=== PATIENT | female | born 1940 | race Caucasian/White ===

== ENCOUNTER → 2017-09-03 | Outpatient (CLI) | payer OTHER ==
[~2017-09-03] MED LIST: ADULT LOW DOSE81 MG PO; ALDACTONE50 MG PO; ASPIR 8181 M1 PO; ASPIRIN325 PO; CEFUROXIME500 MG PO; CIPROFLOXACIN500 M1 PO; CLARITIN10 MG PO; CO Q-10100 MG PO; COZAAR 25 MG TA25 M1 PO; FENOFIBRATE160 MG PO; FISH OIL 1,0001 EAC5 PO; FLONASE 0.05%50 MCG NASAL; FLONASE NASAL; FOLIC ACID 40400 MC1 PO; GLUCOPHAGE500 MG PO; HYDROCODON-ACE1 EAC7 PO; IMDUR 30 MG TAB30 M1 PO; IMDUR 60 MG TAB60 M1 PO; LIPITOR10 MG PO; LISINOPRIL2.5 MG PO; LOPERAMIDE 2 MG2 M1 PO; LOPRESSOR 12.12.5 MG PO; NITROSTAT0.4 MG SL; NORCO 5-325 TA1 EACH PO; NORVASC5 MG PO; OMEPRAZOLE 20 M20 MG PO; PEPCID20 MG PO; PLAVIX 75 MG TA75 MG PO; PRAVASTATIN SOD10 MG PO; TOPROL XL25 MG PO; TRADJENTA5 MG; VENTOLIN HFA 1818 GM INH; VITAMIN B-121000 MCG PO; VITAMIN D31000 UNI2 PO; VITAMINC500 PO; ZOCOR40 MG PO
[2017-09-03 13:49] LABS: ABSOLUTE EOSINOPHILS 0.1 thou/uL (0.0-0.7); ABSOLUTE LYMPHOCYTES 1.2 thou/uL (0.8-5.3); ABSOLUTE MONOCYTES 0.6 thou/uL (0.0-1.2); ABSOLUTE NEUTROPHILS 3.5 thou/uL (1.6-8.1); BASOPHILS 0.8 %; EOSINOPHILS 1.6 %; HEMATOCRIT 34.3 % (37.0-47.0); HEMOGLOBIN 11.3 gm/dL (12.0-15.0); LYMPHOCYTES 22.8 %; MCH 30.7 pg (26.0-34.0); MCHC 32.9 g/dL (28.0-37.0); MCV 93.1 fL (80.0-100.0); MONOCYTES 10.3 %; MPV 7.2 fl. (7.2-11.1); NUCLEATED RBCS 0 /100WBC; PLATELET COUNT* 349 thou/uL (150-400); POLYS 64.5 %; RBC 3.69 mil/uL (4.20-5.00); RDW-CV 17.6 % (10.5-14.5); WBC 5.4 thou/uL (4.0-11.0)
[2017-09-03 14:11] LABS: ALBUMIN 3.4 g/dL (3.4-5.0); CALCIUM 9.2 mg/dL (8.5-10.1); CREATININE 0.8 mg/dL (0.6-1.3); POTASSIUM 3.6 mmol/L (3.5-5.1); TOTAL BILIRUBIN 0.5 mg/dL (<0.1-1.0); TOTAL PROTEIN 6.6 g/dL (6.4-8.2)
== END ==
LOC: M.LAB 13:30
PROVIDERS: Specialist
DX: Z01.818 Encounter for other preprocedural examination (principal); N81.6 Rectocele; N81.11 Cystocele, midline; N99.3 Prolapse of vaginal vault after hysterectomy; I25.10 Atherosclerotic heart disease of native coronary artery without angina pectoris

== ENCOUNTER 2017-09-10 06:00 | Observation (INO) | payer OTHER ==
[~2017-09-10] VITALS: Ht 147.3 cm; Wt 62.1 kg
[~2017-09-10 06:00] MED LIST changes: -HYDROCODON-ACE1 EAC7 PO
[2017-09-10 06:30] VITALS: BP 135/75
[2017-09-10 12:00] VITALS: BP 146/71
--- NOTE | 2017-09-10 12:30 | NUR ---
PT ARRIVED TO THE UNIT AT 1145. PT A&O CALM AND COOPERATIVE. PT VSS ON ROOM AIR. PT DENIES AND SIGNIFICANT PAIN THAT IS NOT CONTROLLED BY THE ACQUISITION ANALYST. PT ORIENTED TO UNIT AND SERVICES, FOOD AND DRINK OFFERED. NURSIGN WILL CONTINUE TO MONITOR.
--- NOTE | 2017-09-10 14:27 | EKG ---
[place] [address] ELECTROCARDIOGRAM REPORT Name: JASSI PEARCE Room: [address]#: [id number] Admission: 09/10/17 Attend Phys: Franky Titus MD Discharge: Date of : 36 Report #: [id number] THIS REPORT FOR: //name// [facility] Test Date: 2017-09-10 Test Time: 07:15:15 Pat Name: JASSI PEARCE Department: Room: Gender: F Logging Engineer: : 1940 Requested By: Franky Titus Order Number: [id number] María MD: Kem Ramsay Measurements Intervals [place] Rate: 69 P: 5 NC: 162 QRS: -20 QRSD: 86 T: 27 QT: 428 QTc: 459 Interpretive Statements Sinus rhythm Inferior infarct, old Compared to ECG 09/17/2016 04:24:13 No significant changes Electronically Signed On 09-10-2017 14:27:09 CDT by Kem Ramsay [email or web address] <ELECTRONICALLY SIGNED> By: Kem Ramsay MD, [facility] 09/10/17 1427 4 Kem Ramsay MD, FACC /EPI
[2017-09-10 16:00] VITALS: BP 140/68
--- NOTE | 2017-09-10 16:50 | OP ---
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 POSTOPERATIVE DIAGNOSIS: Large rectocele. PROCEDURE: Posterior colporrhaphy with perineorrhaphy. SURGEON Franky Titus MD ESTIMATED BLOOD LOSS: 50 mL. ANESTHESIA: General. COMPLICATIONS: None. PROCEDURE: Operative permit was in order. The patient was taken to the operative suite where she was placed under general anesthesia, prepped and draped in the usual manner. Mckeon catheter was placed. The patient's urethra was extremely small and a 12-Indonesian Mckeon catheter was used. Balloon was inflated. She had been given preoperative antibiotics and was prepped and draped in the usual manner. Inspection of the introitus showed large vaginal bulge from the introitus. As noted preoperatively, the vaginal introitus was narrow; therefore, a midline incision was made at the posterior fourchette, allowing full visualization. The tissue bulging from the vagina was found to be a very large rectocele. The apex of the vagina could be visualized using retractors. The corners of the vagina were grasped with Allis clamps and the apex of vagina was actually very well supported. The anterior vaginal wall was quite short and also appeared to have good support. As the patient did not have apical prolapse and a shortened anterior vaginal wall was noted, a colpocleisis was deemed inappropriate and a posterior colporrhaphy planned. Remnants of the hymenal ring on either side were grasped with Allis clamps and a transverse incision made at the introitus, allowing access to the posterior vaginal wall. The vaginal wall was undermined using Metzenbaum scissors. This was carried out to the apex of the vagina. The adventitial tissue over the rectum was dissected away from the vagina as far laterally as feasible. Remnants of the rectovaginal septum were identified on either side. A V shaped wedge of vaginal tissue was excised that allowed full visualization of the operative site. The large rectocele was reduced by bringing the remnants of the fascia back together in the midline, suturing with interrupted 0 Vicryl stick ties. This was carried out from the apex down the vagina to the introitus and did appear to give good posterior support. The vagina was then closed using a 2-0 Vicryl running locked stitch down to near the introitus. [place]ost[place] [address] OPERATIVE REPORT Name: JASSI PEARCE Room: [address] M.R.#: [id number] Admission: 09/10/17 Attend Phys: Franky Titus MD Discharge: Date of : 36 Report #: [id number] controlled with electrocautery as necessary. Once the vagina was closed to about 2 cm from the introitus, the perineum was rebuilt using 0 Vicryl interrupted stick ties. Rectal exam was performed to confirm that there was no injury to the rectum and that no stitches had gone through the rectal mucosa. Gloves were changed. The remaining portion of the posterior wall was then closed with 2-0 Vicryl. This was brought through to the perineum and the perineum was then closed using this stitch as a deep running layer and then brought back up to the introitus as a subcuticular stitch. No significant bleeding was noted. Urine was noted to be clear. The vagina was packed with 2 inch Nu Gauze and estrogen cream. Sponge and instrument counts were reported to me as correct and she was awakened from her anesthetic and taken to recovery room in satisfactory condition. <ELECTRONICALLY SIGNED> By: Franky Titus MD 09/10/17 1650 1030 1055Franky Titus MD /reed
[2017-09-10 21:20] VITALS: BP 152/73
[2017-09-11 00:09] VITALS: BP 139/74
[2017-09-11 03:59] VITALS: BP 145/75
[2017-09-11 05:03] LABS: ABSOLUTE EOSINOPHILS 0.1 thou/uL (0.0-0.7); ABSOLUTE LYMPHOCYTES 1.1 thou/uL (0.8-5.3); ABSOLUTE MONOCYTES 0.7 thou/uL (0.0-1.2); ABSOLUTE NEUTROPHILS 5.9 thou/uL (1.6-8.1); BASOPHILS 0.6 %; EOSINOPHILS 1.1 %; HEMATOCRIT 30.4 % (37.0-47.0); HEMOGLOBIN 10.2 gm/dL (12.0-15.0); LYMPHOCYTES 13.7 %; MCH 30.6 pg (26.0-34.0); MCHC 33.5 g/dL (28.0-37.0); MCV 91.4 fL (80.0-100.0); MONOCYTES 8.7 %; MPV 8.2 fl. (7.2-11.1); NUCLEATED RBCS 0 /100WBC; PLATELET COUNT* 289 thou/uL (150-400); POLYS 75.9 %; RBC 3.32 mil/uL (4.20-5.00); RDW-CV 17.7 % (10.5-14.5); WBC 7.8 thou/uL (4.0-11.0)
[2017-09-11 05:05] LABS: ALBUMIN 2.9 g/dL (3.4-5.0); CALCIUM 8.6 mg/dL (8.5-10.1); CREATININE 0.7 mg/dL (0.6-1.3); MAGNESIUM 1.4 mg/dL (1.8-2.4); POTASSIUM 3.5 mmol/L (3.5-5.1); TOTAL BILIRUBIN 0.3 mg/dL (<0.1-1.0); TOTAL PROTEIN 5.9 g/dL (6.4-8.2)
--- NOTE | 2017-09-11 05:42 | NUR ---
PATIENT HAS SLEPT WELL THROUGHOUT THE NIGHT WITHOUT ANY ISSUES NOTED. PAIN WELL CONTROLLED. VSS ON RA. IV IN LEFT FOREARM-SL. LINSEY CATH RIGHT CHEST-D5 1/2 NS @ 100ML/HR AND AD OPERATIONS COORDINATOR PUMP WITH FENTANYL. WEBSTER TO DEPENDENT DRAINAGE WITH YELLOW URINE OUTPUT AND IS TO BE REMOVED THIS AM. VAGINAL PACKING TO BE REMOVED THIS AM WELL. PATIENT INSTRUCTED TO USE CALL LIGHT WHEN NEEDING ASSISTANCE. HOURLY ROUNDS MADE. WILL CONTINUE WITH PLAN OF CARE AND NURSING TO MONITOR.
[2017-09-11] MEDS ORDERED: HYDROCODON-ACE1 EAC7 PO (07:47)
[2017-09-11 08:07] VITALS: BP 150/77
[2017-09-11 11:15] VITALS: BP 150/77
[2017-09-11 11:19] VITALS: BP 150/77
--- NOTE | 2017-09-11 13:09 | NUR ---
PT DC'D HOME WITH ALL BELONGINGS. PT ACKNOWLEDGED DC INSTRUCTIONS AND SENT WITH RX. PT DENIES PAIN ON DC. TOLERATES DIEST WITHOUT INCREASE PAIN OR DISCOMFORT. PT ABLE TO VOID FREELY. IV REMOVED INTACT BEFORE DISMISSAL.
== END 2017-09-11 13:00 | disposition home or self-care (01) ==
LOC: M.SUR 06:00 → M.TBA 09:52 → M.ORTHSURG 09:52 → M.SUR 09:52 → M.ORTHSURG 11:45 → M.TBA 11:45 → M.SUR 12:28 → M.ORTHSURG 09-11 13:00 → M.SUR 09-11 13:00 → M.ORTHSURG 09-11 13:00
PROVIDERS: Internal Medicine; ADMIT Specialist
DX: N81.10 Cystocele, unspecified (principal); N81.6 Rectocele; N99.3 Prolapse of vaginal vault after hysterectomy; I25.10 Atherosclerotic heart disease of native coronary artery without angina pectoris; I25.2 Old myocardial infarction; G62.9 Polyneuropathy, unspecified; I10 Essential (primary) hypertension; Z85.72 Personal history of non-Hodgkin lymphomas; Z92.21 Personal history of antineoplastic chemotherapy; Z90.710 Acquired absence of both cervix and uterus

== ENCOUNTER → 2017-09-12 | Outpatient (CLI) | payer OTHER ==
[~2017-09-12] MED LIST changes: +HYDROCODON-ACE1 EAC7 PO
== END ==
LOC: M.RAD 12:56 → M.CRD 13:00 → M.RAD 13:00
DX: Z12.31 Encounter for screening mammogram for malignant neoplasm of breast (principal); M81.0 Age-related osteoporosis without current pathological fracture; Z78.0 Asymptomatic menopausal state

== ENCOUNTER → 2019-03-18 | Outpatient (CLI) | payer OTHER ==
--- NOTE | 2019-03-18 18:24 | CARDNUC ---
[place] [address] CARDIAC NUCLEAR IMAGING REPORT Name: JASSI PEARCE Room: [facility]#: [id number] Admission: 03/18/19 Attend Phys: Yohannes Gooden, Discharge: Date of : 36 Date of Service: 03/18/19 1823 Report #: [id number] THIS REPORT FOR: //name// APPROVED REPORT Study performed: 03/18/2019 14:42:27 Exam: Nuclear Stress Test Indication: Chest pain, Dyspnea, Left arm pressure. Patient Location: Out-Patient Stress Tech: Lorni Goldstein Stress Nurse: Estefany Cook RN NM Tech:SHAMIKA Iglesias Ht: 4 ft 11 in Wt: 143 lbs BSA: 1.60 m2 BMI: 28.87 Medical History Medical History: Angina, CAD s/p MA, CAD s/p stent, Fatigue, HTN, Hyperlipidemia, SOB, Aortic Valve Stenosis. Medications: Amlodipine, ASA 81 Mg, Atorvastatin, Clopidogrel, Isosorbide, Losartan, Metoprolol. Allergies: Statins Cardiac Risk Factors: Age, FHX of CAD, HTN, Hyperlipidemia, SOB, Aortic Valve Stenosis. Previous Cardiac Procedures: Myocardial infarction, PCI Pretest Chest Pain Characteristics: No chest pain Exercise History: Indeterminate Physical Disabilities: Unsteady/weak gait. Meds Held (24 hrs): Isosorbide, Metoprolol. Stress Test Details Stress Test: Pharmacologic stress testing performed using 0.4 mg of regadenoson per 5 mL given IV over 10 seconds. Reason for pharmacologic stress test: Unsteady/weak gait.. HR Resting HR: 59 bpm Max Heart Rate (APMHR): 139 bpm Max HR Achieved: 94 bpm Target HR (85% APMHR): 118 bpm % of APMHR: 67 Recovery HR: 81 bpm BP Resting BP: 147/58 mmHg Max BP: 153/75 [place] [address] CARDIAC NUCLEAR IMAGING REPORT Name: JASSI PEARCE Room: [facility]#: [id number] Admission: 03/18/19 Attend Phys: Yohannes Gooden, Discharge: Date of : 36 Date of Service: 03/18/19 1823 Report #: [id number] ECG Resting ECG: Sinus Rhythm Stress ECG: Sinus Rhythm ST Change: None Arrhythmia: None Recovery ECG: Sinus Rhythm Recovery ST Change: None Recovery Arrhythmia: None Clinical Reason for Termination: Completed protocol Stress Symptoms: Dyspnea, Headache, Head pressure. Exercise duration: 00 min 00 sec Exercise capacity: 1.00 METs The patient tolerated Lexiscan infusion without significant cardiac symptoms. Nurse Comments An 79 year old female presented in wheelchair for sitting Lexiscan Nuclear Stress Test r/t recent CP radiating to left arm and dyspnea s/p MA and PCI. Test well tolerated. Recovery unremarkable with PO caffeine, effective. Patient was escorted via wheelchair by staff to Nuclear Medicine for images. Patient was stable with no complaints at that time. Stress ECG Conclusion The baseline EKG show sinus rhythm without significant ST or T wave abnormality. EKGs obtained during and post Lexiscan infusion show sinus rhythm with no significant ST or T wave changes when compared to baseline. NM EXAM: Myocardial Perfusion REST/STRESS Imaging Protocol: Rest Tc-99m/Stress Tc-99m 1 day Resting Data Rest SPECT myocardial perfusion imaging was performed in supine position 30 minutes following the intravenous injection of 11.4 mCi of Tc-99m Sestamibi. Time of rest injection: 1300 Date: 03/18/2019 The images were gated to evaluate regional wall motion and calculate left ventricular ejection fraction. Administration Route: IV Administration Site: Right [place] [address] CARDIAC NUCLEAR IMAGING REPORT Name: JASSI PEARCE Room: [facility]#: [id number] Admission: 03/18/19 Attend Phys: Yohannes Gooden, Discharge: Date of : 36 Date of Service: 03/18/19 1823 Report #: [id number] Pharmacologic stress test was performed by injecting Regadenoson 0.4 mg IV push followed by the intravenous injection of 31.4 mCi of Tc-99m Sestamibi. Time of stress injection: 1500 Date: 03/18/2019 Administration Route: IV Administration Site: Right AC Gated Stress SPECT was performed 40 minutes after stress injection. The images were gated to evaluate regional wall motion and calculate left ventricular ejection fraction. Prone imaging was performed. Study Quality Study: Good Artifact: Mild Diaphragmatic artifact Study Data At rest, the left ventricular ejection fraction was 66%.. Post stress, the left ventricular ejection was 60%.. TID = 1.09. Perfusion There is a small region of moderate to severe intensity defect in the basal portion the inferior wall. There is associated wall motion are normally suggesting the possibility of prior infarct. Additionally there is a focal reversible apical defect suggesting apical ischemia. Wall Motion The basal portion inferior wall is hypokinetic. Global LV systolic function is preserved. Nuclear Conclusion ECG Findings: negative for ischemia Clinical Findings: negative for ischemia Nuclear Findings: positive for ischemia Exercise Capacity: not assessed Left Ventricular Function: preserved Risk Study: moderate Myocardial perfusion images suggest possible prior infarct of the basal portion the inferior wall as well as focal apical ischemia. Global LV systolic function is preserved. This is a moderate risk study. <Conclusion> The baseline EKG show sinus rhythm without significant ST [place] [address] CARDIAC NUCLEAR IMAGING REPORT Name: JASSI PEARCE [id number] Admission: 03/18/19 Attend Phys: Yohannes Gooden, Discharge: Date of : 36 Date of Service: 03/18/19 1823 Report #: [id number] abnormality. EKGs obtained during and post Lexiscan infusion show sinus rhythm with no significant ST or T wave changes when compared to baseline. <ELECTRONICALLY SIGNED> By: Yohannes Gooden MD, FACC 03/18/191822 22 22 Yohannes Gooden MD, FACC /INF
== END ==
LOC: M.NUC 02-18 08:05 → M.CRD 03-07 13:00 → M.NUC 03-07 13:00
DX: I25.10 Atherosclerotic heart disease of native coronary artery without angina pectoris (principal); I25.2 Old myocardial infarction; I10 Essential (primary) hypertension; E78.5 Hyperlipidemia, unspecified; Z95.818 Presence of other cardiac implants and grafts; Z79.899 Other long term (current) drug therapy

== ENCOUNTER 2019-03-27 12:59 | Observation (INO) | payer OTHER ==
[2019-03-27] VITALS (18 sets, daily range): BP systolic 103–161; BP diastolic 50–87
[~2019-03-27] VITALS: Ht 149.9 cm; Wt 63.0 kg
[2019-03-27 15:01] LABS: HEMOGLOBIN 12.1 gm/dL (12.0-15.0); MCH 30.6 pg (26.0-34.0); MCHC 34.4 g/dL (28.0-37.0); MCV 89.1 fL (80.0-100.0); MPV 8.7 fl. (7.2-11.1); RBC 3.93 mil/uL (4.20-5.00); WBC 4.6 thou/uL (4.0-11.0)
[2019-03-27] MEDS ORDERED: ASA81BEC (15:03)
[2019-03-27 15:10] LABS: INR 1.2
[2019-03-27 15:14] LABS: ANION GAP 8 mmol/L (7-16); BUN 18 mg/dL (7-18); CALCIUM 9.4 mg/dL (8.5-10.1); CHLORIDE 108 mmol/L (98-107); CO2 25 mmol/L (21-32); CREATININE 0.8 mg/dL (0.6-1.3); GLUCOSE 97 mg/dL (70-99); POTASSIUM 4.4 mmol/L (3.5-5.1); SODIUM 141 mmol/L (136-145)
[2019-03-27 15:19] LABS: ALBUMIN 3.3 g/dL (3.4-5.0); ALKALINE PHOSPHATASE 68 U/L (46-116); CHOLESTEROL 87 mg/dL (<200); HDL CHOLESTEROL 21 mg/dL (>40); LDL CHOLESTEROL 56 mg/dL (<100); SGOT 43 U/L (15-37); SGPT 34 U/L (30-65); TC:HDL 4.1 Ratio (Not establshd); TOTAL BILIRUBIN 0.7 mg/dL (<0.1-1.0); TOTAL PROTEIN 6.4 g/dL (6.4-8.2); TRIGLYCERIDE 54 mg/dL (<150); VLDL 11 mg/dL (<40)
[2019-03-27 15:22] LABS: SERUM ASSESSMENT Clear
--- NOTE | 2019-03-27 15:44 | EKG ---
[place] [address] ELECTROCARDIOGRAM REPORT Name: JASSI PEARCE Room: [facility]#: [id number] Admission: 03/27/19 Attend Phys: Yohannes Gooden MD Discharge: Date of : 38 Report #: [id number] THIS REPORT FOR: //name// [facility] Test Date: 2019-03-27 Test Time: 14:20:36 Pat Name: JASSI PEARCE Department: Room: Gender: F Clinical Biochemical Geneticist: : 1940 Requested By: Yohannes Gooden Order Number: [id number] Reading MD: Yohannes Gooden Measurements Intervals [place] Rate: 63 P: 43 NV: 166 QRS: -27 QRSD: 95 T: 8 QT: 417 QTc: 427 Interpretive Statements Sinus rhythm Inferior infarct, old Compared to ECG 09/10/2017 07:15:15 ST (T wave) deviation now present Myocardial infarct finding still present Electronically Signed On 03-27-2019 15:44:04 ASSOCIATE SOFTWARE DEVELOPMENT ENGINEER by Yohannes Gooden [email or web address] <ELECTRONICALLY SIGNED> By: Yohannes Gooden MD, [facility] 03/27/19 1544 1420 1420 Yohannes Gooden MD, FACC /EPI
[2019-03-28] VITALS (7 sets, daily range): BP systolic 116–142; BP diastolic 51–64
[2019-03-28 03:48] LABS: CALCIUM 8.8 mg/dL (8.5-10.1); CREATININE 0.8 mg/dL (0.6-1.3); POTASSIUM 4.8 mmol/L (3.5-5.1)
--- NOTE | 2019-03-28 06:32 | NUR ---
PT TRANSFERRED TO 222 VIA BED. RECEIVED REPORT FROM EQUIPMENT DRIVER. PT A&OX4. BIOMETRICS TECHNICIAN IN PLACE. VSS. ADMISSION HISTORY & PHYSICAL ASSESSMENT COMPLETED AND CHARTED. ORIENTED TO ROOM & CALL LIGHT. PT ON RA. PT TRACING SR ON TELE. POST CATH SITE TO RIGHT GROIN CLEAN, DRY & INTACT. NO BLEEDING OR HEMATOMA NOTED. DENIES ANY PAIN OR DISCOMFORT. PT ABLE TO SLEEP WELL ON BED. CALL LIGHT WITHIN REACH.
--- NOTE | 2019-03-28 09:19 | NUR ---
ASSUMED CARE OF PT THIS AM AROUND 0715- CLIENT ADVOCATE IN PLACE ORDERED, TRACING SB- UPON ASSESSMENT PT NOTED TO BE RESTING IN BED- PT A&O X4- CONTINENT OF B/B- SBA WITH TRANSFERS- LCTA, RESP EVEN AND UN-LABORED- VSS, O2 SAT 99% ON RA- ABD SOFT/ROUND/NON-TENDER, BS X4 QUADS- LAST BM REPORTED THIS AM-GOOD PO INTAKE NOTED THIS AM WITH BREAKFAST- IV NOTED TO LEFT WRIST INTACT AND SL- RIGHT GROIN SLIGHT C/D/I WITH NO HEMATOMA NOTED, SENSATION INTACK WITH CAP LESS THAN 3- PT DENIES ANY C/O PAIN/DISCOMFORT AT THIS TIME- CALL LIGHT AND PERSONAL BELONGINGS WITH IN REACH- HOURLY ROUNDS IN PLACE R/T SAFETY/NEEDS- ALL NEEDS MET AT THIS TIME-WCTM
[2019-03-28] MEDS ORDERED: EFFIENT10 MG PO (09:49)
--- NOTE | 2019-03-28 13:58 | EKG ---
[place] [address] ELECTROCARDIOGRAM REPORT Name: JASSI PEARCE Room: [address] M.R.#: [id number] Admission: 03/27/19 Attend Phys: Yohannes Gooden MD Discharge: 03/28/19 Date of : 38 Report #: [id number] THIS REPORT FOR: //name// [facility] Test Date: 2019-03-28 Test Time: 03:00:50 Pat Name: JASSI PEARCE Department: Room: [facility] Gender: F Retail Support Specialist: : 1940 Requested By: Yohannes Gooden Order Number: [id number] Reading MD: Kem Ramsay Measurements Intervals [place] Rate: 61 P: 53 MA: 171 QRS: -28 QRSD: 101 T: 2 QT: 424 QTc: 427 Interpretive Statements Sinus rhythm Rare PVC Inferior infarct, old Compared to ECG 03/27/2019 14:20:36 PVC is noted Myocardial infarct finding still present Electronically Signed On 03-28-2019 13:57:50 BUSINESS MANAGEMENT INTERN by Kem Ramsay [email or web address] <ELECTRONICALLY SIGNED> By: Kem Ramsay MD, [facility] 03/28/19 1357 9 9 Kem Ramsay MD, FACC /EPI
--- NOTE | 2019-03-28 14:54 | CARD ---
[address] [address] CARDIAC CATH REPORT Name: JASSI PEARCE Room: [address] Wilner Greene#: [id number] Admission: 03/27/19 Attend Phys: Yohannes Gooden MD Discharge: 03/28/19 Date of : 38 Report #: [id number] THIS REPORT FOR: //name// ADDENDUM APPROVED REPORT Study performed: 03/27/2019 15:23:33 Patient Details Patient Status: OP Room #: The patient is a 79 year-old female Event Personnel Yohannes Gooden Religion Teacher, Candi Lamar Glue Bone Crusher, Graciela Garnett RTR Scrub, Maryjane Gonzalez RTR Monitor, Kem Ramsay Supreme Court Justice, Shaista Florez Glue Bone Crusher Procedures Performed Art Access - R femoral artery Left Heart Cath w/or w/o Coronaries JANE Place w/wo Plasty Single LAD PTCA Addl Branch DIAG 2 Hemostasis with Manual pressure Indication Positive stress test Risk Factors Hypercholesterolemia Admission/Lab Medications/Medications given during procedure Angiomax bolus and infusion Procedure Narrative The patient was brought electively to the Cardiac Catheterization Laboratory and was prepped and draped in a sterile manner. The right femoral was infiltrated with subcutaneous anesthesia. A Golden Eagle 6 FR sheath was inserted into the right femoral artery. Coronary angiography was performed using coronary diagnostic catheters. The right coronary system was accessed and visualized with a Diagnostic JR 4 6 Fr catheter. The left coronary system was accessed and visualized with a Diagnostic JL 4 6 Fr catheter. The left ventricle was accessed and visualized with a Diagnostic Pig 6 Fr catheter. Left ventricular/Aortic Valve gradient assessed via catheter pullback. Left ventriculogram was performed in CRENSHAW projection. Pre-demployment femoral angiogram was performed . Hemostasis was obtained with manual pressure following sheath removal without any complications. The patient tolerated the procedure well and there [place] [address] CARDIAC CATH REPORT Name: PEARCEJASSI Room: [address] M.Ashlyn#: [id number] Admission: 03/27/19 Attend Phys: Yohannes Gooden MD Discharge: 03/28/19 Date of : 38 Report #: [id number] associated with the procedure. There was no hematoma. Intraoperative Conscious Sedation Sedation start time: 15:56 Case end Time: 16:51 Fentanyl 25 mcg Versed 1 mg Fluoro Time: 15.8 minutes Dose: DAP 45677 cGycm2 1569 mGy Contrast Type and Amount: Visipaque 200 ml Diagnostic Cath Left Main 0% narrowing LAD 40% proximal LAD stenosis with 90% calcified focal mid LAD stenosis Circumflex Tandem 75 and 80% proximal and mid circumflex stenoses, this being a nondominant vessel Right Coronary Large dominant vessel with 50% tubular mid vessel narrowing and 90% distal stenosis Left Ventriculography The left ventricle is normal in size with normal contractility. The left ventricular ejection fraction is estimated to be 60%. Left ventricular wall motion abnormalities are not present. There is mild mitral insufficiency. Hemodynamics The aortic pressure is 140/51 mmHg with a mean of 86 mmHg. The left ventricular pressure is 140/5 mmHg with a mean of mmHg. The left ventricular end diastolic pressure is 21 mmHg. PCI Technique Lesion Anticoagulation was achieved with Angiomax. Patient was preloaded with Angiomax IV 10 ml. Percutaneous coronary intervention was performed on the mid left anterior descending artery segment. The lesion stenosis prior to intervention was 90% with TANMAY 3 flow. A 6F XB LAD 3.5 Guide Catheter was used to engage the left ostium. A IG: BMW 190cm Interventional Guidewire was used to cross the lesion. BALLOON DILATION A Balloon catheter NC Trek RX 2.25x12 was inserted and inflated up to 18.00atm for 21seconds. Additional Inflation: 22.00atm for 13seconds. [place] [address] CARDIAC CATH REPORT Name: JASSI PEARCE Room: [address] Jc#: [id number] Admission: 03/27/19 Attend Phys: Yohannes Gooden MD Discharge: 03/28/19 Date of : 36 Report #: [id number] A drug-eluting stent Biotronik Orsiro 2.5 x 13 was inserted and inflated up to 10.00atm for 14seconds. Additional Inflation: 11.00atm for 10seconds. Final angiography reveals 0 % stenosis with TANMAY 3 flow. PCI Technique Lesion 2 Percutaneous Coronary Intervention was performed on the second diagnonal branch segment. Patient was preloaded with Angiomax IV 10 ml. The lesion stenosis prior to intervention was 75% with TANMAY 2/3 flow. A 6F XB LAD 3.5 Guide Catheter was used to engage the ostium. A IG: BMW 190cm Interventional Guidewire was used to cross the lesion. Balloon Dilation A Balloon catheter Mini Trek RX 2.0 X 8 was inserted and inflated up to 10.00atm for 12seconds. Additional Inflation: 12.00atm for 10seconds. Final angiography reveals 20 % stenosis with TANMAY 3 flow. Conclusion #1 significant coronary artery disease characterized by the following: A 40% proximal LAD narrowing with 90% focal calcified mid LAD stenosis and 75% narrowing at the ostium of the second diagonal branch B nondominant circumflex with tandem 75% proximal and 80% mid circumflex stenoses C dominant right coronary artery with 50% mid vessel narrowing and 90% distal stenosis #2 normal left ventricular systolic function, estimate ejection fraction being 60% with mild mitral regurgitation noted #3 moderate elevation of left ventricular end-diastolic pressure at rest #4 successful percutaneous coronary intervention with deployment of drug-eluting stent at the site of 90% mid LAD stenosis with 0% [place] [address] CARDIAC CATH REPORT Name: JASSI PEARCE Room: [address] Wilner Greene#: [id number] Admission: 03/27/19 Attend Phys: Yohannes Gooden MD Discharge: 03/28/19 Date of : 36 Report #: [id number] #5 successful percutaneous transluminal coronary angioplasty at the site of ostial 75% second diagonal narrowing with 20% residual narrowing and TANMAY-3 flow to the distal vessel Recommendations Cardiac Risk Reduction Program Aggressive Medical Therapy Medications Administered Aspirin (any) Prasugrel Diagnostic Cath Approved by: Yohannes Gooden MD Date/Time: 03/28/2019 14:49:07 <ELECTRONICALLY SIGNED> By: Kem Ramsay MD, FACC 03/28/19 1454 1454 1454Kem Ramsay MD, FACC /INF
--- NOTE | 2019-04-08 07:49 | D ---
[facility] [address] [place] [address] DISCHARGE SUMMARY Name: JASSI PEARCE Room: [address] Wilner [place]#: [id number] Admission: 03/27/19 Attend Phys: Yohannes Gooden MD Discharge: 03/28/19 Date of : 36 Report #: [id number] THIS REPORT FOR: //name// CC: Mounika Flores Black DISCHARGE DIAGNOSES: 1. Coronary artery disease. 2. Unstable angina. 3. Hypertension. 4. Dyslipidemia. PROCEDURES DURING THE HOSPITAL COURSE: 1. Coronary angiography. 2. Left ventriculography. 3. Left heart catheterization. 4. Percutaneous coronary intervention to the mid left anterior descending coronary artery. HOSPITAL COURSE: The patient was admitted to the cardiac catheterization lab after a cath that showed significant 3-vessel disease. The patient underwent percutaneous coronary intervention of the mid left anterior descending coronary artery without complication. A single drug-eluting stent was placed. The diagonal branch, which was jailed was post-dilated without incident. The patient tolerated the procedure well without complication. The patient was noted to have residual disease in the proximal circumflex and distal right coronary artery. Left ventricular systolic function was preserved. DISCHARGE MEDICATIONS: 1. Aspirin 81 mg daily. 2. Effient 10 mg daily. 3. Albuterol 2 puffs q. 4 hours p.r.n. 4. Amlodipine 5 mg daily. 5. Vitamin C 1000 mg b.i.d. 6. Atorvastatin 10 mg daily. 7. Vitamin D 4000 units daily. 8. Vitamin B12 1000 mcg daily. 9. Pepcid 40 mg at bedtime. 10. Fenofibrate 160 mg daily. 11. [place] 5/325 one q. 6 hours p.r.n. 12. Imdur 60 mg daily. 13. Claritin 10 mg daily. 14. Cozaar 25 mg daily. 15. Toprol-XL 25 mg daily. 16. Fish oil 1000 mg b.i.d. [address] [place] [address] DISCHARGE SUMMARY Name: PEARCEJASSI ORTIZ Room: [address]#: [id number] Admission: 03/27/19 Attend Phys: Yohannes Gooden MD Discharge: 03/28/19 Date of : 36 Report #: [id number] 17. CoQ10 100 mg daily. DISPOSITION: The patient to follow up with repeat intervention in the next 2-4 weeks. <ELECTRONICALLY SIGNED> By: Yohannes Gooden MD, FACC 04/08/19 0749 0955 1011[facility] MD, FACC /nt
== END 2019-03-28 11:33 | disposition home or self-care (01) ==
LOC: M.CL 12:59 → M.TBA-CV 17:03 → M.2W 17:03
PROVIDERS: ADMIT Internal Medicine Cardiovascular Disease
DX: I25.110 Atherosclerotic heart disease of native coronary artery with unstable angina pectoris (principal); I10 Essential (primary) hypertension; E78.5 Hyperlipidemia, unspecified; E78.00 Pure hypercholesterolemia, unspecified; Z79.82 Long term (current) use of aspirin; Z79.899 Other long term (current) drug therapy

== ENCOUNTER 2019-04-08 08:52 | Observation (INO) | payer OTHER ==
[2019-04-08] VITALS (10 sets, daily range): BP systolic 93–116; BP diastolic 40–60
[~2019-04-08] VITALS: Ht 149.9 cm; Wt 63.0 kg
[~2019-04-08 08:52] MED LIST changes: +ASA81BEC; +EFFIENT10 MG PO
[2019-04-08 10:07] LABS: HEMATOCRIT 33.2 % (37.0-47.0); HEMOGLOBIN 11.3 gm/dL (12.0-15.0); MCH 30.8 pg (26.0-34.0); MCV 90.8 fL (80.0-100.0); MPV 8.2 fl. (7.2-11.1); RBC 3.66 mil/uL (4.20-5.00); WBC 5.2 thou/uL (4.0-11.0)
[2019-04-08 10:17] LABS: ANION GAP 10 mmol/L (7-16); APTT 27.3 Seconds (25.0-31.3); BUN 22 mg/dL (7-18); CALCIUM 8.7 mg/dL (8.5-10.1); CHLORIDE 110 mmol/L (98-107); CO2 24 mmol/L (21-32); GLUCOSE 96 mg/dL (70-99); INR 1.2; POTASSIUM 4.1 mmol/L (3.5-5.1); PROTIME 11.8 Seconds (9.20-11.50); SODIUM 144 mmol/L (136-145)
[2019-04-08 10:21] LABS: ALBUMIN 3.1 g/dL (3.4-5.0); ALKALINE PHOSPHATASE 82 U/L (46-116); CHOLESTEROL 83 mg/dL (<200); HDL CHOLESTEROL 21 mg/dL (>40); LDL CHOLESTEROL 51 mg/dL (<100); SGOT 31 U/L (15-37); SGPT 22 U/L (30-65); TOTAL BILIRUBIN 0.5 mg/dL (<0.1-1.0); TOTAL PROTEIN 6.4 g/dL (6.4-8.2); TRIGLYCERIDE 57 mg/dL (<150); VLDL 11 mg/dL (<40)
[2019-04-08 10:31] LABS: SERUM ASSESSMENT Clear
--- NOTE | 2019-04-08 11:04 | EKG ---
[place] [address] ELECTROCARDIOGRAM REPORT Name: JASSI PEARCE Room: [facility]#: [id number] Admission: 04/08/19 Attend Phys: Yohannes Gooden MD Discharge: Date of : 36 Report #: [id number] THIS REPORT FOR: //name// [facility] Test Date: 2019-04-08 Test Time: 10:08:47 Pat Name: JASSI PEARCE Department: Room: Gender: F Coater Smoking Pipe: RT : 1940 Requested By: Yohannes Gooden Order Number: [id number] Reading MD: Yohannes Gooden Measurements Intervals [place] Rate: 69 P: 40 AK: 168 QRS: -28 QRSD: 95 T: 8 QT: 396 QTc: 425 Interpretive Statements Sinus rhythm Inferior infarct, old Minimal ST elevation, anterior leads Compared to ECG 03/28/2019 03:00:50 ST (T wave) deviation now present Ventricular premature complex(es) no longer present Myocardial infarct finding still present Electronically Signed On 04-08-2019 11:04:19 ENGRAVED ROLLER INSPECTOR by Yohannes Gooden [email or web address] <ELECTRONICALLY SIGNED> By: Yohannes Gooden MD, FACC 04/08/19 1104 1008 1008 Yohannes Gooden MD, FAC /EPI
--- NOTE | 2019-04-08 15:43 | EKG ---
[place] [address] ELECTROCARDIOGRAM REPORT Name: JASSI PEARCE Room: [address] M.R.#: [id number] Admission: 04/08/19 Attend Phys: Yohannes Gooden MD Discharge: Date of : 38 Report #: [id number] THIS REPORT FOR: //name// Test Date: 2019-04-08 Test Time: 14:48:07 Pat Name: JASSI PEARCE Department: Room: [facility] Gender: F Mission Coordinator: RT : 1940 Requested By: Yohannes Gooden Order Number: [id number] Reading MD: Kem Ramsay Measurements Intervals [place] Rate: 54 P: 3 CO: 165 QRS: -28 QRSD: 93 T: 1 QT: 441 QTc: 418 Interpretive Statements Sinus rhythm Inferior infarct, old Minimal ST elevation, anterior leads Compared to ECG 04/08/2019 10:08:47 No significant changes Electronically Signed On 04-08-2019 15:43:33 PAYLOADER OPERATOR by Kem Ramsay [email or web address] <ELECTRONICALLY SIGNED> By: Kem Ramsay MD, [facility] 04/08/19 1543 1448 1448 Kem Ramsay MD, FAC /EPI
[2019-04-09] VITALS: BP 102/45
[2019-04-09 04:00] VITALS: BP 95/44
[2019-04-09 05:46] LABS: HEMATOCRIT 24.4 % (37.0-47.0); MCHC 34.1 g/dL (28.0-37.0); MPV 7.8 fl. (7.2-11.1); RBC 2.68 mil/uL (4.20-5.00); RDW-CV 19.4 % (10.5-14.5); WBC 5.7 thou/uL (4.0-11.0)
[2019-04-09 05:51] LABS: HEMOGLOBIN 8.3 gm/dL (12.0-15.0)
[2019-04-09 06:00] LABS: ALBUMIN 2.5 g/dL (3.4-5.0); CALCIUM 8.4 mg/dL (8.5-10.1); CREATININE 0.8 mg/dL (0.6-1.3); POTASSIUM 4.3 mmol/L (3.5-5.1); TOTAL BILIRUBIN 0.5 mg/dL (<0.1-1.0)
[2019-04-09 08:00] VITALS: BP 106/55
--- NOTE | 2019-04-09 08:51 | H ---
[place] [address] HISTORY AND PHYSICAL Name: JASSI PEARCE Room: [address] [place] MAshlee#: [id number] Admission: 04/08/19 Attend Phys: Yohannes Gooden MD Discharge: Date of : 38 Report #: [id number] THIS REPORT FOR: //name// CC: Mounika Gooden DATE OF SERVICE: 04/08/2019 CARDIOLOGY ADMISSION HISTORY AND PHYSICAL INDICATION: Continued progressive angina with coronary artery disease. HISTORY OF PRESENT ILLNESS: The patient is a very pleasant 79-year-old white female with history of coronary artery disease with remote intervention to the right coronary artery in 2011. More recently, she had catheterization after a stress test showed evidence of ischemia. Stress testing was obtained due to complaints of continued symptoms including dyspnea and chest discomfort. Catheterization revealed high grade stenoses involving the LAD, proximal to mid circumflex and very distal right coronary arteries. The patient underwent intervention to the proximal to mid left anterior descending coronary artery, a few weeks ago. She returns for intervention to the circumflex and right coronary artery. CARDIAC RISK FACTORS: Include hypertension and dyslipidemia. PAST MEDICAL HISTORY: 1. Coronary artery disease with previous intervention as outlined above. 2. Hypertension. 3. Dyslipidemia. 4. Mild aortic stenosis. 5. Raynaud's phenomenon. 6. History of lymphoma, status post treatment. FAMILY HISTORY: Positive for coronary artery disease in the patient's mother, father and brothers. SOCIAL HISTORY: The patient is a lifelong nonsmoker. She does not drink alcohol. ALLERGIES: PRAVASTATIN AND SIMVASTATIN. CURRENT MEDICATIONS: Amlodipine 5 mg daily, vitamin C 1000 mg b.i.d., aspirin 81 mg daily, Lipitor 40 mg daily, Effient 10 mg daily, Pepcid 40 mg daily, fenofibrate 160 mg daily, Imdur 60 mg daily, Claritin 10 mg daily, Cozaar 25 mg daily, metoprolol tartrate 25 mg b.i.d., vitamin D3 [place] [address] HISTORY AND PHYSICAL Name: JASSI PEARCE Room: [address] M.R.#: [id number] Admission: 04/08/19 Attend Phys: Yohannes Gooden MD Discharge: Date of : 38 Report #: [id number] REVIEW OF SYSTEMS: Positive for chest discomfort, mild leg swelling, shortness of breath with activity, dizziness and lightheadedness, otherwise unremarkable 14-point review of systems PHYSICAL EXAMINATION: VITAL SIGNS: Stable. Blood pressure is 122/62, pulse rate is 82 and regular. GENERAL: This is a thin, pleasant female in no distress. Mood and affect appropriate. HEENT: Extraocular muscles intact. Mucous membranes moist. NECK: Shows no jugular venous distention. There are no carotid bruits. CHEST: Reveals clear lung brown without wheezes or rales. CARDIOVASCULAR: Reveals a regular rhythm with a soft grade 1-2/6 systolic ejection murmur. I do not appreciate gallop. ABDOMEN: Reveals normal bowel sounds. The abdomen is soft and nontender. EXTREMITIES: Shows no edema. SKIN: Warm and dry. Peripheral pulses palpable. IMPRESSION AND RECOMMENDATIONS: 1. Progressive/recurrent angina. Plan for repeat intervention to the circumflex and right coronary artery. Continue dual antiplatelet therapy. 2. Coronary artery disease. Continue antiplatelet therapy as outlined above. 3. Dyslipidemia. Continue atorvastatin at current dose. 4. Hypertension, fairly well controlled on current regimen. 5. Aortic stenosis. Continue surveillance echocardiograms. 6. Raynaud's phenomenon. Continue amlodipine and isosorbide. <ELECTRONICALLY SIGNED> By: Yohannes Gooden MD, FACC 04/09/19 0851 1000 1045Micmichael Gooden MD, FACC /nt
--- NOTE | 2019-04-09 08:53 | EKG ---
[place] [address] ELECTROCARDIOGRAM REPORT Name: JASSI PEARCE Room: [address] M.R.#: [id number] Admission: 04/08/19 Attend Phys: Yohannes Gooden MD Discharge: Date of : 38 Report #: [id number] THIS REPORT FOR: //name// [facility] Test Date: 2019-04-09 Test Time: 03:07:52 Pat Name: JASSI PEARCE Department: Room: [facility] Gender: F Asset Card Clerk: JY : 1940 Requested By: Yohannes Gooden Order Number: [id number] Reading MD: Yohannes Gooden Measurements Intervals [place] Rate: 70 P: 4 HI: 164 QRS: -21 QRSD: 93 T: 13 QT: 400 QTc: 432 Interpretive Statements Sinus rhythm Inferior infarct, old Compared to ECG 04/08/2019 14:48:07 ST (T wave) deviation no longer present Myocardial infarct finding still present Electronically Signed On 04-09-2019 8:52:50 VISUALLY IMPAIRED TEACHER by Yohannes Gooden [email or web address] <ELECTRONICALLY SIGNED> By: Yohannes Gooden MD, [facility] 04/09/19 0852 0307 0307 Yohannes Gooden MD, [facility] /EPI
[2019-04-09 10:42] VITALS: BP 103/49
--- NOTE | 2019-04-10 12:29 | D ---
[address] [address] DISCHARGE SUMMARY Name: JASSI PEARCE Room: [address] [place]#: [id number] Admission: 04/08/19 Attend Phys: Yohannes Gooden MD Discharge: 04/09/19 Date of : 38 Report #: [id number] THIS REPORT FOR: //name// CC: Mounika Gooden DATE OF SERVICE: 04/09/2019 INDICATION: Continued angina. DISCHARGE DIAGNOSES: 1. Coronary artery disease. 2. Continued angina. 3. Hypertension. 4. Dyslipidemia. 5. Mild aortic stenosis. 6. Raynaud's phenomenon. 7. History of lymphoma, status post treatment. PROCEDURES DURING THE HOSPITALIZATION: 1. Percutaneous coronary intervention with drug-eluting stent placement to the proximal to mid circumflex and first obtuse marginal coronary artery. 2. Percutaneous coronary intervention and drug-eluting stent placed to the distal right coronary artery. HOSPITAL COURSE: The patient was brought to the cardiac catheterization lab for staged procedure yesterday. The patient underwent percutaneous coronary intervention with drug-eluting stents placed to the proximal circumflex and first obtuse marginal as well as the very distal right coronary artery without complication. The patient was already on dual antiplatelet therapy from previous procedure several weeks ago. The patient tolerated the procedure well without complication. She had some residual bruising in her right groin from previous procedure without additional significant bruising. She is being discharged uneventfully. DISCHARGE MEDICATIONS: 1. Effient 10 mg daily. 2. Aspirin 81 mg daily. 3. Amlodipine 5 mg daily. 4. Lipitor 40 mg daily. 5. Fenofibrate 160 mg daily. 6. Metoprolol tartrate 25 mg b.i.d. 7. Cozaar 25 mg daily. 8. Imdur 60 mg daily. 9. Claritin [address] [place] [address] DISCHARGE SUMMARY Name: JASSI PEARCE Room: [address] [place]#: [id number] Admission: 04/08/19 Attend Phys: Yohannes Gooden MD Discharge: 04/09/19 Date of : 38 Report #: [id number] 10. Vitamin C 1000 mg b.i.d. 11. Pepcid 40 mg daily. 12. Vitamin D3 2000 units daily. DISPOSITION: The patient is to be followed up in the Cardiology Clinic with nurse practitioner in 1 month and myself in 3 months. <ELECTRONICALLY SIGNED> By: Yohannes Gooden MD, FACC 04/10/19 1229 0836 0857Yohannes Gooden MD, FACC /nt
--- NOTE | 2019-04-10 15:14 | CARD ---
[address] [address] CARDIAC CATH REPORT Name: JASSI PEARCE Room: [address] [place]#: [id number] Admission: 04/08/19 Attend Phys: Yohannes Gooden MD Discharge: 04/09/19 Date of : 38 Report #: [id number] THIS REPORT FOR: //name// APPROVED REPORT Study performed: 04/08/2019 11:43:28 Patient Details Patient Status: OP Room #: The patient is a 79 year-old female Event Personnel Yohannes Gooden Clinical Partner, Natty Nelson RN General Warehouse Worker, Maryjane Gonzalez RTR Monitor, Graciela Garnett RTR Scrub,Kem Ramsay Cocoa Powder Mixer Operator Procedures Performed Art Access - R femoral artery JANE Place w/wo Plasty Single RCA JANE Place w/wo Plasty Single CIRC Hemostasis w/ Mynx Procedure Narrative A 6fr Ultimum Sheath sheath was inserted into the right femoral artery. Coronary angiography was performed using coronary diagnostic catheters. Closure device was deployed with a Fr MynxGrip 6/7F. The patient tolerated the procedure well and there were no complications associated with the procedure. A hematoma occurred. Fluoro Time: 23.1 minutes Dose: DAP 419964 cGycm2 1808 mGy Contrast Type and Amount: Visipaque 355 ml Coronary Angiography The patient's coronary anatomy is right dominant. Diagnostic Cath Left Main The left main coronary artery is short and normal. The left main bifurcates into a left anterior descending and circumflex coronary artery. LAD The proximal left anterior descending coronary artery is calcified with approximately 30-40% narrowing. There is a widely patent stent in the mid left anterior descending coronary artery. The distal vessel is minimally plaqued. Diagonal 1 A first diagonal branch is free of significant disease. Diagonal 2 A second diagonal branches jailed [place] [address] CARDIAC CATH REPORT Name: JASSI PEARCE Room: [address] [place] MFelicia.#: [id number] Admission: 04/08/19 Attend Phys: Yohannes Gooden MD Discharge: 04/09/19 Date of : 38 Report #: [id number] but TANMAY-3 flow noted. Circumflex The proximal circumflex has a 70% narrowing followed by an 80% narrowing in the takeoff of a large first obtuse marginal branch. The mid and distal vessel are small in caliber and free of significant disease. OM1 A single first obtuse marginal branch has an 80% narrowing proximally as outlined above. Right Coronary Proximal to mid right coronary artery has a 30% narrowing. There is a widely patent stent in the distal right coronary artery. R PDA The right PDA appears free of significant disease. RPLV There is a 90% narrowing at a branching point of the right posterior lateral LV branch. PCI Technique Lesion Anticoagulation was achieved with Angiomax Drip. Patient was preloaded with Angiomax IV 10 ml. Percutaneous coronary intervention was performed on the mid circumflex artery segment. The lesion stenosis prior to intervention was 80% with TANMAY 3 flow. A 6FR LAUNCHER EBU 3.5 Guide Catheter was used to engage the left ostium. A IG: BMW 190cm Interventional Guidewire was used to cross the lesion. BALLOON DILATION A Balloon catheter NC Trek RX 2.5 X 12 was inserted and inflated up to 18.00atm for 8seconds. Additional Inflation: 14.00atm for 11seconds. STENT DEPLOYMENT A drug-eluting stent Biotronik Orsiro 2.5 x 30 was inserted and inflated up to 12.00atm for 13seconds. Additional Inflation: 14.00atm for 10seconds. Biotronik Orsiro 2.5 x 9 inserted/deployed for 12 sec @ 8 AMBER Final angiography reveals 0 % stenosis with TANMAY 3 flow. PCI Technique Lesion 2 Percutaneous Coronary Intervention was performed on the distal right coronary artery. Patient was preloaded with Angiomax IV 10 ml. A 6F JR 4.0 Guide Catheter was used to engage the right ostium. A IG: BMW 190cm Interventional Guidewire was used to cross the lesion. Balloon Dilation A Balloon catheter Trek RX 2.25 X 12 was inserted and inflated up to 10.00atm for 14seconds. Additional Inflation: 12.00atm for 10seconds. [place] [address] CARDIAC CATH REPORT Name: JASSI PEARCE Room: [address] [place]#: [id number] Admission: 04/08/19 Attend Phys: Yohannes Gooden MD Discharge: 04/09/19 Date of : 38 Report #: [id number] Stent Deployment A drug-eluting stent Ming RX Stent 2.5X12mm was inserted and inflated up to 8.00atm for 13seconds. Final angiography reveals 10 % stenosis with TANMAY 3 flow. PCI Technique Lesion 3 Percutaneous Coronary Intervention was performed on the distal circumflex artery segment. Patient was preloaded with Angiomax IV 10 ml. A 6FR LAUNCHER EBU 3.5 Guide Catheter was used to engage the left ostium. Stent Deployment A drug-eluting stent Ming RX Stent 2.25X8mm was inserted and inflated up to 14atm for 11seconds. Additional Inflation: 16atm for 7seconds. Conclusion 1. Significant occlusive disease noted in the proximal circumflex extending into the proximal portion of the first obtuse marginal branch. 2. Significant disease in a large posterior lateral branch of the right coronary artery. 3. Successful percutaneous coronary intervention with deployment of 2 drug-eluting stents at the site of tandem significant circumflex stenoses with 0% residual narrowing and TANMAY-3 flow to the distal vessel 4 successful percutaneous coronary intervention with deployment of a drug-eluting stent in the distal right coronary artery with 10% residual narrowing and TANMAY-3 flow to the distal vessel Recommendations 1. Percutaneous coronary intervention to the proximal circumflex into the first obtuse marginal branch. 2. Percutaneous coronary intervention to the posterior lateral branch of the right coronary artery. 3. Continue aggressive risk factor modification. Diagnostic Cath Approved by: Yohannes Gooden MD Date/Time: <ELECTRONICALLY SIGNED> By: Kem Ramsay MD, FACC 04/10/19 1514 1514 1514Kem Ramsay MD, FACC /INF
== END 2019-04-09 11:45 | disposition home or self-care (01) ==
LOC: M.CL 08:52 → M.TBA-CV 14:05 → M.2W 14:05
PROVIDERS: ADMIT Internal Medicine Cardiovascular Disease
DX: I25.118 Atherosclerotic heart disease of native coronary artery with other forms of angina pectoris (principal); I10 Essential (primary) hypertension; E78.5 Hyperlipidemia, unspecified; I35.0 Nonrheumatic aortic (valve) stenosis; I73.00 Raynaud's syndrome without gangrene; Z79.82 Long term (current) use of aspirin; Z79.899 Other long term (current) drug therapy

== ENCOUNTER → 2019-04-28 | Outpatient (CLI) | payer OTHER ==
[2019-04-28 14:06] LABS: ABSOLUTE BASOPHILS 0.1 thou/uL (0.0-0.2); ABSOLUTE EOSINOPHILS 0.2 thou/uL (0.0-0.7); ABSOLUTE LYMPHOCYTES 1.5 thou/uL (0.8-5.3); ABSOLUTE MONOCYTES 0.6 thou/uL (0.0-1.2); ABSOLUTE NEUTROPHILS 5.1 thou/uL (1.6-8.1); BASOPHILS 1.3 %; EOSINOPHILS 2.9 %; HEMATOCRIT 26.8 % (37.0-47.0); HEMOGLOBIN 9.2 gm/dL (12.0-15.0); LYMPHOCYTES 19.6 %; MCH 32.5 pg (26.0-34.0); MCHC 34.2 g/dL (28.0-37.0); MCV 94.9 fL (80.0-100.0); MPV 7.7 fl. (7.2-11.1); NUCLEATED RBCS 0 /100WBC; PLATELET COUNT* 509 thou/uL (150-400); POLYS 68.2 %; RBC 2.83 mil/uL (4.20-5.00); RDW-CV 19.1 % (10.5-14.5); WBC 7.5 thou/uL (4.0-11.0)
== END ==
LOC: M.LAB 13:31
PROVIDERS: Internal Medicine Cardiovascular Disease
DX: K92.1 Melena (principal)

== ENCOUNTER → 2019-05-13 | Outpatient (CLI) | payer OTHER ==
[2019-05-13 12:03] LABS: ABSOLUTE EOSINOPHILS 0.1 thou/uL (0.0-0.7); ABSOLUTE LYMPHOCYTES 1.1 thou/uL (0.8-5.3); ABSOLUTE MONOCYTES 0.4 thou/uL (0.0-1.2); ABSOLUTE NEUTROPHILS 3.7 thou/uL (1.6-8.1); BASOPHILS 0.8 %; EOSINOPHILS 2.4 %; HEMATOCRIT 29.7 % (37.0-47.0); HEMOGLOBIN 9.8 gm/dL (12.0-15.0); LYMPHOCYTES 20.4 %; MCH 31.6 pg (26.0-34.0); MCHC 33.1 g/dL (28.0-37.0); MCV 95.3 fL (80.0-100.0); MPV 7.5 fl. (7.2-11.1); NUCLEATED RBCS 0 /100WBC; PLATELET COUNT* 366 thou/uL (150-400); POLYS 68.4 %; RBC 3.11 mil/uL (4.20-5.00); RDW-CV 16.9 % (10.5-14.5); WBC 5.5 thou/uL (4.0-11.0)
== END ==
LOC: M.LAB 11:47
PROVIDERS: Nurse Practitioner
DX: D64.9 Anemia, unspecified (principal)

== ENCOUNTER → 2019-05-27 | Outpatient (CLI) | payer OTHER | LOC: M.RAD 12:10 | DX: Z12.31 Encounter for screening mammogram for malignant neoplasm of breast (principal) ==

== ENCOUNTER → 2019-09-03 | Outpatient (CLI) | payer OTHER ==
[~2019-09-03] VITALS: Ht 149.9 cm; Wt 61.8 kg
[2019-09-03 09:51] VITALS: BP 144/72
[2019-09-03 10:32] LABS: HEMATOCRIT 33.9 % (37.0-47.0); HEMOGLOBIN 11.5 gm/dL (12.0-15.0); MCH 28.6 pg (26.0-34.0); MCV 84.3 fL (80.0-100.0); MPV 8.5 fl. (7.2-11.1); RBC 4.02 mil/uL (4.20-5.00); WBC 4.6 thou/uL (4.0-11.0)
[2019-09-03 10:41] LABS: ANION GAP 9 mmol/L (7-16); BUN 26 mg/dL (7-18); CALCIUM 8.7 mg/dL (8.5-10.1); CHLORIDE 110 mmol/L (98-107); CO2 24 mmol/L (21-32); CREATININE 0.9 mg/dL (0.6-1.3); GLUCOSE 99 mg/dL (70-99); POTASSIUM 3.4 mmol/L (3.5-5.1); SODIUM 143 mmol/L (136-145)
[2019-09-03 10:42] LABS: APTT 27.7 Seconds (25.0-31.3); INR 1.2; PROTIME 11.8 Seconds (9.20-11.50)
[2019-09-03 10:45] LABS: ALBUMIN 3.1 g/dL (3.4-5.0); ALKALINE PHOSPHATASE 79 U/L (46-116); CHOLESTEROL 106 mg/dL (<200); HDL CHOLESTEROL 35 mg/dL (>40); LDL CHOLESTEROL 60 mg/dL (<100); SERUM ASSESSMENT Clear; SGOT 25 U/L (15-37); SGPT 17 U/L (30-65); TOTAL BILIRUBIN 0.4 mg/dL (<0.1-1.0); TOTAL PROTEIN 6.4 g/dL (6.4-8.2); TRIGLYCERIDE 57 mg/dL (<150); VLDL 11 mg/dL (<40)
[2019-09-03 13:29] LABS: BE -7.2 mmol/L (-2 to +3); PCO2 33.9 mmHg (35.0-45.0); pH 7.337 (7.340-7.450)
[2019-09-03 13:31] LABS: PO2 382.9 mmHg (75.0-100.0)
--- NOTE | 2019-09-03 17:22 | 2DMMODE ---
[address] [address] 2 D/M-MODE ECHOCARDIOGRAM Name: JASSI PEARCE V Room: [facility]#: [id number] Admission: 09/03/19 Attend Phys: Yohannes Gooden, Discharge: Date of : 36 Date of Service: 09/03/19 1720 Report #: [id number] THIS REPORT FOR: cc: Mounika Bernal MD, Lin W. MD Liston, Michael J. MD [facility] ~ APPROVED REPORT Study performed: 09/03/2019 13:14:24 EXAM: Limited 2D Echocardiogram Patient Location: In-Patient Status: routine BSA: 1.57 Rhythm: NSR Other Information Study Quality: Adequate Indications Pericardial Effusion LAD perforation Left Ventricle The left ventricle is normal size. There is global hypokinesis. There is normal left ventricular wall thickness. Left ventricular systolic function is moderately decreased. LVEF is 35-40%. This study is not technically sufficient to allow evaluation of the LV diastolic function. Right Ventricle The right ventricle is normal size. The right ventricular systolic function is normal. Atria The left atrium size is normal. The right atrium size is normal. Aortic Valve Aortic valve is not well visualized. Mitral Valve The mitral valve is normal in structure. [address] [place] [address] 2 D/M-MODE ECHOCARDIOGRAM Name: JASSI PEARCE V Room: [facility]#: [id number] Admission: 09/03/19 Attend Phys: Yohannes Gooden, Discharge: Date of : 36 Date of Service: 09/03/191719 Report #: [id number] Tricuspid Valve Tricuspid valve is not visualized. Pulmonic Valve Pulmonic valve is not visualized. Great Vessels The aortic root is normal in size. IVC is normal in size and collapses >50% with inspiration. Pericardium Moderate circumferential pericardial effusion. The diastolic compression of the right ventricle is suggestive of cardiac tamponade. <Conclusion> The left ventricle is normal size. There is normal left ventricular wall thickness. Left ventricular systolic function is moderately decreased. LVEF is 35-40%. This study is not technically sufficient to allow evaluation of the LV diastolic function. There is global hypokinesis. Moderate circumferential pericardial effusion. The diastolic compression of the right ventricle is suggestive of cardiac tamponade. <ELECTRONICALLY SIGNED> By: Yohannes Gooden MD, FACC 09/03/191719 19 19 Yohannes Gooden MD, FACC /INF
--- NOTE | 2019-09-03 17:31 | EKG ---
[place] [address] ELECTROCARDIOGRAM REPORT Name: JASSI PEARCE V Room: [facility]#: [id number] Admission: 09/03/19 Attend Phys: Yohannes Gooden, Discharge: Date of : 36 Date of Service: 09/03/19 0953 Report #: [id number] THIS REPORT FOR: //name// [facility] Test Date: 2019-09-03 Test Time: 09:53:39 Pat Name: JASSI PEARCE Department: Room: Gender: F Director Of Software Engineering: : 1940 Requested By: Kem Ramsay Order Number: [id number] Reading MD: Yohannes Gooden Measurements Intervals [place] Rate: 63 P: 39 RI: 168 QRS: -37 QRSD: 104 T: 21 QT: 424 QTc: 435 Interpretive Statements Sinus rhythm Ventricular premature complex Inferior infarct, old Compared to ECG 04/09/2019 03:07:52 Ventricular premature complex(es) now present Myocardial infarct finding still present Electronically Signed On 09-03-2019 17:30:13 CDT by Yohannes Gooden [email or web address] <ELECTRONICALLY SIGNED> By: Yohannes Gooden MD, FACC 09/03/19 1730 0953 0953 Yohannes Gooden MD, [facility] /EPI
--- NOTE | 2019-09-03 18:45 | NUR ---
PT RECEIVED AT [address] [facility] WAHL HERE TO TALK TO THE FAMILY MEMBERS, SON AND DAUGHTERS IN THE ROOM. MTN NOTIFIED AT 175 AND PAINTER AND BODY MECHANIC APPRENTICE'S OFFICE NOTIFIED AT 181, BOTH RULED OUT THE CASE. COMFORT CART AND EMOTIONAL SUPPORT PROVIDED. WAITING ON THE FAMILY TO DECIDE ON HOME.
--- NOTE | 2019-09-03 22:00 | NUR ---
Many of pt's family members remained until cell support operator arrived at 2114. Family and cell support operator left unit at 2139. Pt's body dc'd from unit per home transporter accompanied by internet security specialist at 2144. Pt's daughter left with pt's belongings.
--- NOTE | 2019-09-04 10:15 | D ---
[address] [address] DISCHARGE SUMMARY Name: JASSI PEARCE V Room: [facility]#: [id number] Admission: 09/03/19 Attend Phys: Yohannes Gooden MD Discharge: Date of : 38 Report #: [id number] THIS REPORT FOR: //name// cc: Mounika Bernal MD, Lin W. MD ~ THIS REPORT FOR: //name// CC: Mounika Gooden MD SUMMARY FINAL DISCHARGE DIAGNOSES: 1. Unstable angina. 2. Coronary artery disease. 3. Status post percutneous coronary intervention with orbital atherectomy of the proximal letft anteior descending coronary artery. 4. Coronary perforation after orbital atherectomy. 5. Pericardial effusion with pericardial tamponade consequent to the perforation. 6. Subsequent hypotension and cardiac arrest with the patient expiring at 1726 hours. PROCEDURES: 1. On 09/03/2019 -- left heart catheterization, selective coronary arteriography, atherectomy of the proximal LAD with deployment of a covered stent 3.5 x 20 mm Papyrus in the proximal LAD. 2. PTCA of the mid LAD. 3. Deployment of drug-eluting stent in the proximal circumflex. 4. Pericardiocentesis x 2 with 250 and 450 mL withdrawn on 2 occasions with the approach being subxiphoid. HOSPITAL COURSE: The patient is a very pleasant 79-year-old female with coronary artery disease, status post multiple prior percutaneous coronary interventions, she continued to experience angina, which was unstable. In that context, cardiac catheterization was recommended and undertaken on 09/03/2019. That study revealed 80% heavily calcified proximal LAD stenosis with 30% mid and 40% distal narrowing. There was a patent circumflex stent and 40% mid right coronary narrowing. I elected to perform orbital atherectomy on the proximal LAD with 2 runs at low speed and 1 at high. Following the third run, there was evidence for coronary perforation. I immediately withdrew the atherectomy catheter and advanced a Papyrus 3.5 x 20 mm covered stent over that wire deploying it to [address] [place] [address] DISCHARGE SUMMARY Name: JASSI PEARCE V Room: [facility]#: [id number] Admission: 09/03/19 Attend Phys: Yohannes Gooden MD Discharge: Date of : 38 Report #: [id number] atmospheres in the proximal LAD with no subsequent extravasation of dye noted on injections. The patient developed hypotension and echocardiogram revealed evidence for moderately large pericardial effusion with suggestion of pericardial tamponade. Pericardiocentesis was performed from the subxiphoid approach with 250 mL removed. The patient developed normal systemic pressure at this point. She was removed from the table and was quite comfortable. Her pressure subsequently began to fall. I placed her back in the catheterization table and assessment revealed evidence for recurrent pericardial effusion as well as a moderate mid LAD and proximal circumflex lesions. I dilated the mid LAD and stented the proximal circumflex. I then performed a repeat pericardiocentesis in the subxiphoid approach with echo guidance removing 450 mL of fluid from the pericardial space. This is a bloody fluid. Pressure transitorily omaira to 100-110 but subsequently began to fall despite evidence by catheterization of a good flow through the LAD and circumflex without evidence of extravasation. Systemic pressure became lower to the point of 30-40 systolic and cardiopulmonary resuscitation was commenced. We performed CPR, and the patient received multiple pressors including Vance-Synephrine, Levophed and dopamine as well as 1 amp of sodium bicarbonate and epinephrine boluses. She developed progressive hypotension, which was unresponsive to the aforementioned pressors and prolonged cardiopulmonary resuscitation. The patient was also intubated during the resuscitative effort. Blood gases during the resuscitation revealed satisfactory pCO2 of 27 and pH of 7.48. We were unable to maintain satisfactory systemic pressure and perfusion and the patient of cardiogenic shock at 1726 hours. This was discussed in detail with the patient's family. <ELECTRONICALLY SIGNED> By: Kem Ramsay MD, FACC 09/04/19 1015 1815 1921Kem Ramsay MD, FACC /nt
--- NOTE | 2019-09-04 12:25 | CARD ---
[address] [address] CARDIAC CATH REPORT Name: JASSI PEARCE V Room: [facility]#: [id number] Admission: 09/03/19 Attend Phys: Yohannes Gooden MD Discharge: Date of : 36 Report #: [id number] THIS REPORT FOR: //name// cc: Mounika Bernal MD, Lin W. MD ~ APPROVED REPORT Study performed: 09/03/2019 11:30:21 Patient Details Patient Status: Out-Patient Room #: The patient is a 79 year-old female Event Personnel Kem Ramsay Public Policy Manager, Marlen Lewis RN Nut Sorter, Natty Nelson RN Nut Sorter, Graciela Garnett RTR Monitor, Tr Mauricio MACHINE TENDER Scrub Procedures Performed Art Access - R femoral artery, Left Heart Catheterization, JANE w/Atherectomy Single LAD, Hemostasis w/Mynx, Pericardiocentesis initial, L femoral artery access, PTCA LAD , JANE /PTCA Single Circ, Pericardiocentesis Subsequent, L femoral vein access, CPR Indication Unstable angina Risk Factors Hypercholesterolemia, Hypertension Previous Procedures/Diagnoses Previous PCI Admission/Lab Medications/Medications given during procedure Heparin Unfract., Heparin IV bolus 11,500 units total, Dopamine IV 20 mcg per kg per min, Zofran (Ondansetron) IV 4 mg, Effient PO 20 mg, Epinephrine, Norepinephrine, Neosynephrine Procedure Narrative The patient was brought electively to the Cardiac Catheterization Laboratory and was prepped and draped in a sterile manner. The right femoral was infiltrated with 2% Lidocaine subcutaneous anesthesia. A Wingate 6 FR sheath was inserted into the right femoral artery. Coronary angiography was performed [place] [address] CARDIAC CATH REPORT Name: PEARCEJASSI V Room: [facility]#: [id number] Admission: 09/03/19 Attend Phys: Yohannes Gooden MD Discharge: Date of : 38 Report #: [id number] catheters. The right coronary system was accessed and visualized with a 6F JR4 catheter. The left coronary system was accessed and visualized with a 6F JL4 catheter. The left ventricle was accessed and visualized with a 6F Pigtail catheter. Left ventricular/Aortic Valve gradient assessed via catheter pullback. Pre-demployment femoral angiogram was performed . Closure device was deployed with a 6 Fr Mynx. There was no hematoma. Left femoral artery and Left femoral vein each had a 6F Wingate sheath sutured in place. Pericardiocentesis performed twice with Echo. The pericardiocentesis catheter was sutured in place 2nd time. Intraoperative Conscious Sedation Sedation start time: 12:15 Case end Time: 14:35 Fentanyl 25 mcg Versed 1 mg 2nd start time 15:16/ stop time 17:16. See Code sheet for documentation of medications given during the Code. Fluoro Time: 31.8 minutes Dose: DAP [id number] cGycm2 2390 mGy Contrast Type and Amount: Visipaque 350 ml Left Ventriculography Left Ventriculography was not performed. Hemodynamics The aortic pressure is 169/54 mmHg with a mean of 83 mmHg. The left ventricular pressure is 146/5 mmHg with a mean of mmHg. The left ventricular end diastolic pressure is 20 mmHg. There was no gradient across the aortic valve upon pullback. PCI Technique Lesion Anticoagulation was achieved with Heparin. Patient was preloaded with Heparin IV 5500 units. Percutaneous coronary intervention was performed on the proximal left anterior descending artery segment. A 6F XB LAD 3.5 Guide Catheter was used to engage the left ostium. A [employer] Flex 300cm and [employer] 335am Interventional Guidewire was used to cross the lesion. BALLOON DILATION A Balloon catheter Trek RX 3.5 X 12 was inserted and inflated up to 8.00atm for 24seconds. Additional Inflation: 8.00atm for 20seconds. Finecross catheter utilized. Athrectomy of LAD artery performed, with 1.25 CSI Classic manjit, before PTCA/JANE of LAD artery. Perforation of LAD artery following athrectomy. A Biotronik 3.5 x [address] [place] [address] CARDIAC CATH REPORT Name: JASSI PEARCE V Room: [facility]#: [id number] Admission: 09/03/19 Attend Phys: Yohannes Gooden MD Discharge: Date of : 38 Report #: [id number] covered stent was inserted and inflated up to 8 lor for 8 seconds. A Trek RX 2.5 x 12 balloon catheter was inserted and used for measurement only. STENT DEPLOYMENT A drug-eluting stent Hestand RX Stent 2.5X18mm was inserted and inflated up to 12.00atm for 7seconds. Final angiography reveals 0 % stenosis with TANMAY flow. COMMENTS Patient developed perforation of the proximal LAD after the third run of the orbital device, the first 2 low speed of the third at high speed. Given the evidence of perforation, I promptly removed the orbital atherectomy device and placed a 3.5 x 20 mm papyrus covered stent at that site deploying it to 8 lor. There was a 90% stenosis just distal this which was stented with a 2.5 x 18 mm on extent. There was now TANMAY-3 flow to the distal vessel and no evidence of extravasation of contrast at the site of previously noted proximal LAD perforation. Patient demonstrated pulses paradoxus and echocardiographic evaluation demonstrated normal systolic function with a moderate pericardial effusion and suggestion of hemodynamic effect. I proceed with pericardiocentesis, removing 250 mL of bloody fluid. The patient stabilized was and was transferred off the [place] table. She subsequently developed decreasing blood pressure was transferred back to the [place] table. Catheterization revealed 90% mid LAD and proximal circumflex stenoses with angioplasty performed on the LAD and stenting of the circumflex with a good angiographic result. Repeat echo assessment demonstrated reaccumulation of pericardial fluid which was moderately severe in size with hemodynamic impairment. I proceeded with repeat pericardiocentesis, removing 450 mL of bloody fluid. The pigtail catheter was left in the pericardial space. Repeat angiographic assessment revealed widely patent LAD and circumflex stents with TANMAY 3 flow to the distal circulation and no angiographic evidence for extravasation of contrast. The patient developed progressive hypotension which was unresponsive to multiple pressors. Extensive CPR was performed and the patient was intubated without complication. We were unable to achieve hemodynamic stability despite extensive cardiopulmonary resuscitative efforts, multiple vasopressors and controlled ventilation. The patient at 1726 hrs. PCI Technique Lesion 2 Percutaneous Coronary Intervention was performed on the mid left anterior descending artery segment. Patient was preloaded with [facility] [address] [place] [id number] CARDIAC CATH REPORT Name: JASSI PEARCE V Room: [facility]#: [id number] Admission: 09/03/19 Attend Phys: Yohannes Gooden MD Discharge: Date of : 38 Report #: [id number] Heparin. A 6F XB LAD 3.5 Guide Catheter was used to engage the left ostium. A BMW 190cm Interventional Guidewire was used to cross the lesion. Balloon Dilation A Balloon catheter NC Trek RX 2.25 x 12 was inserted and inflated up to 10.00atm for 6seconds. Additional Inflation: 10.00atm for 6seconds. Final angiography reveals 20 % stenosis with TANMAY 3 flow. PCI Technique Lesion 3 Percutaneous Coronary Intervention was performed on the proximal circumflex artery segment. Patient was preloaded with Heparin. The lesion stenosis prior to intervention was 90% with TANMAY 3 flow. A 6F XB LAD 3.5 Guide Catheter was used to engage the left ostium. A BMW 190cm Interventional Guidewire was used to cross the lesion. Balloon Dilation A Balloon catheter NC Trek RX 2.25 X 12 was inserted and inflated up to 12.00atm for 16seconds. Additional Inflation: 16.00atm for 14seconds. Stent Deployment A drug-eluting stent Hestand RX 2.75 x 15 was inserted and inflated up to 12.00atm for 6seconds. Final angiography reveals 0 % stenosis with TANMAY 3 flow. Conclusion #1 severe multivessel coronary artery disease characterized by the following: A 80% heavily calcified proximal LAD stenosis with 40% mid and distal narrowings B 30% narrowing of the midportion of the nondominant circumflex with a widely patent mid circumflex stent C dominant right coronary artery of 40% mid vessel narrowing and a widely patent distal right coronary stent #2 orbital atherectomy was performed on the proximal LAD site. After the third run, the patient developed a proximal LAD coronary perforation. This was covered with a papyrus [place] [address] CARDIAC CATH REPORT Name: JASSI PEARCE V Room: [facility]#: [id number] Admission: 09/03/19 Attend Phys: Yohannes Gooden MD Discharge: Date of : 38 Report #: [id number] drug-eluting stent placed distal to this due to achieve TANMAY-3 flow to the distal circulation. No further angiographic evidence for extravasation of dye was noted at the proximal LAD site #3 the patient developed significant pericardial fluid accumulation requiring pericardiocentesis on 2 occasions with 250 and 450 mL of bloody fluid removed on sequential aspirations. #4 PTCA of the mid LAD and stenting of the proximal circumflex was performed after the initial pericardiocentesis in the context of notation of hemodynamically severe lesions at both sites, prominent coronary vasospasm suggested #5 patient developed progressive hypotension which was unresponsive to multiple pressors extensive CPR and intubation with controlled ventilation. She ultimately at 1726 hrs. Medications Administered Prasugrel Diagnostic Cath Approved by: Kem Ramsay MD Date/Time: 09/04/2019 12:00:10 <ELECTRONICALLY SIGNED> By: Kem Ramsay MD, FAC 09/04/19 1224 1224 1224Kem Ramsay MD, FAC /INF
== END | disposition home or self-care (01) ==
LOC: M.CL 09:32
PROVIDERS: Internal Medicine
DX: I25.110 Atherosclerotic heart disease of native coronary artery with unstable angina pectoris (principal); I31.3 Pericardial effusion (noninflammatory); R07.9 Chest pain, unspecified; I10 Essential (primary) hypertension; E78.00 Pure hypercholesterolemia, unspecified; K21.9 Gastro-esophageal reflux disease without esophagitis; I25.2 Old myocardial infarction; Z98.890 Other specified postprocedural states; Z79.899 Other long term (current) drug therapy; Z90.710 Acquired absence of both cervix and uterus; Z88.8 Allergy status to other drugs, medicaments and biological substances